=== PATIENT | female | born 1995 | race Caucasian/White ===

== ENCOUNTER 2017-08-07 22:17 | Emergency (ER) | payer OTHER ==
[2017-08-08 00:50] VITALS: BP 103/75
== END 2017-08-08 00:50 | disposition home or self-care (01) ==
LOC: ED 22:17
DX: F10.129 Alcohol abuse with intoxication, unspecified (principal); F41.9 Anxiety disorder, unspecified; Z79.899 Other long term (current) drug therapy; F32.9 Major depressive disorder, single episode, unspecified; Z86.59 Personal history of other mental and behavioral disorders
CPT/HCPCS: J7030